=== PATIENT | female | born 1990 | race Caucasian/White ===

== ENCOUNTER 2021-03-03 13:32 | Inpatient (IN) | payer OTHER, MEDICAID ==
[~2021-03-03] VITALS: Ht 154.9 cm; Wt 66.7 kg
[2021-03-03 13:40] VITALS: BP 122/68
[2021-03-03 16:13] LABS: ABSOLUTE BASOPHILS 0.1 thou/uL (0.0-0.2); ABSOLUTE EOSINOPHILS 0.2 thou/uL (0.0-0.7); ABSOLUTE LYMPHOCYTES 2.4 thou/uL (0.8-5.3); ABSOLUTE MONOCYTES 0.6 thou/uL (0.0-1.2); ABSOLUTE NEUTROPHILS 3.1 thou/uL (1.6-8.1); BASOPHILS 1.2 %; EOSINOPHILS 3.6 %; HEMATOCRIT 42.8 % (37.0-47.0); HEMOGLOBIN 14.6 gm/dL (12.0-15.0); LYMPHOCYTES 36.8 %; MCH 30.9 pg (26.0-34.0); MONOCYTES 9.8 %; MPV 9.4 fl. (7.2-11.1); NUCLEATED RBCS 0 /100WBC; PLATELET COUNT* 293 thou/uL (150-400); POLYS 48.6 %; RDW-CV 12.8 % (10.5-14.5); WBC 6.5 thou/uL (4.0-11.0)
[2021-03-03 16:22] LABS: CALCIUM 8.7 mg/dL (8.5-10.1); CREATININE 0.6 mg/dL (0.6-1.3); POTASSIUM 4.1 mmol/L (3.5-5.1)
[2021-03-03 16:26] LABS: ALBUMIN 4.1 g/dL (3.4-5.0); TOTAL BILIRUBIN 0.5 mg/dL (<0.1-1.0); TOTAL PROTEIN 7.3 g/dL (6.4-8.2)
[2021-03-03 21:00] VITALS: BP 110/68
[2021-03-03 21:34] VITALS: BP 106/70
[2021-03-03 21:40] VITALS: BP 106/70
[2021-03-04] VITALS: BP 93/56
[2021-03-04 02:38] LABS: URINE BILIRUBIN NEGATIVE (Negative); URINE BLOOD NEGATIVE (Negative); URINE CLARITY CLEAR; URINE COLOR ORANGE; URINE SPECIFIC GRAVITY 1.015 (1.005-1.030)
[2021-03-04 02:43] LABS: URINE PROTEIN ND (Negative)
[2021-03-04 02:44] LABS: URINE NITRITE-REFLEX ND (Negative); URINE UROBILINOGEN ND E.U./dl (0.2-1.0)
[2021-03-04 02:45] LABS: URINE LEUKOCYTES-REFLEX ND (Negative)
[2021-03-04 02:48] LABS: ACETEST (KETONE CONFIRMATORY) Negative (Negative); URINE GLUCOSE-RANDOM ND (Negative); URINE KETONES ND (Negative)
[2021-03-04 04:18] LABS: CASTS None Seen /LPF (None Seen); MUCUS 0-3 Light strn/LPF (None Seen); SQUAMOUS 4-10 Moderate /LPF (0-3)
[2021-03-04 04:19] LABS: URINE RBC 3-10 Few /HPF (0-2); URINE WBC-REFLEX 0-5 Rare /HPF (0-5)
[2021-03-04 04:20] VITALS: BP 99/61
[2021-03-04 04:20] LABS: CRYSTALS None Seen /LPF (None Seen)
[2021-03-04 08:30] VITALS: BP 109/65
--- NOTE | 2021-03-04 10:51 | EKG ---
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
[2021-03-04 12:37] VITALS: BP 95/54
[2021-03-04] MEDS ORDERED: AZITHROMYCIN500 MG PO (13:46)
[2021-03-04] MEDS ORDERED: SEROQUEL 100 M100 M1 PO (13:46)
[2021-03-04] MEDS ORDERED: ADVAIR 100-501 EACH INH (13:46)
[2021-03-04 17:01] VITALS: BP 95/54
== END 2021-03-04 18:20 | disposition home or self-care (01) | DRG 203 ==
LOC: M.ERS 13:32 → M.TBA-ER 17:39 → M.ORTHSURG 21:13
PROVIDERS: Emergency Medicine Emergency Medical Services; ADMIT Internal Medicine; ATTEND Internal Medicine
DX: J20.9 Acute bronchitis, unspecified (principal); J45.909 Unspecified asthma, uncomplicated; F41.9 Anxiety disorder, unspecified; Z20.822 Contact with and (suspected) exposure to COVID-19; F31.9 Bipolar disorder, unspecified; Z86.11 Personal history of tuberculosis; Z79.899 Other long term (current) drug therapy